=== PATIENT | female | born 1985 | race Caucasian/White ===

== ENCOUNTER 2019-08-10 08:00 | Emergency (ER) | payer OTHER ==
[~2019-08-10] VITALS: Ht 170.2 cm; Wt 78.0 kg
[2019-08-10] MEDS ORDERED: DIPH,PERTUSS(ACELL),TET VAC/PF 0.5 ML IM-VACC ONE ×2 (08:24→08:30)
--- NOTE | 2019-08-10 08:30 | NUR ---
Pt transported on gurney to [facility]. Medication per EMAR provided. Labs obtained at bedside.
[2019-08-10 08:39] LABS: BASOPHILS # (AUTO) 0.03 x10^3/uL (0-0.1); BASOPHILS % (AUTO) 0 % (0-1); EOSINOPHILS # (AUTO) 0.05 x10^3/uL (0-0.4); EOSINOPHILS % (AUTO) 1 % (1-7); LYMPHOCYTES # (AUTO) 1.04 x10^3/uL (1-3.4); LYMPHOCYTES % (AUTO) 12 % (22-44); MD NO; MEAN CORPUSCULAR HEMOGLOBIN 31.4 pg (27.0-34.8); MEAN CORPUSCULAR HGB CONC 33.5 g/dL (32.4-35.8); MEAN CORPUSCULAR VOLUME 93.9 fL (80-100); MEAN PLATELET VOLUME 9.4 fL (7.4-10.4); MONOCYTES # (AUTO) 0.67 x10^3/uL (0.2-0.8); MONOCYTES % (AUTO) 8 % (2-9); NEUTROPHILS # (AUTO) 7.12 x10^3/uL (1.8-6.8); NEUTROPHILS % (AUTO) 80 % (42-75); PLATELET COUNT 218 x10^3/uL (130-400); RED BLOOD COUNT 4.71 x10^6/uL (3.82-5.3); RED CELL DISTRIBUTION WIDTH 12.7 % (9.6-15.2)
[2019-08-10 08:48] VITALS: BP 106/66
[2019-08-10 08:51] LABS: ALBUMIN 4.1 g/dL (3.4-5.0); ANION GAP 4 mmol/L (5-15); CALCIUM 8.8 mg/dL (8.5-10.1); CHLORIDE 107 mmol/L (98-107)
[2019-08-10 08:56] LABS: CREATININE 1.07 mg/dL (0.55-1.02)
--- NOTE | 2019-08-10 08:57 | NUR ---
LATE NOTE ENTRY DUE TO PT CARE. Pt presents to ED with c/o right periorbital bruising and tenderness and upper lip swelling s/p syncopal episode after drinking beer on Saturday. Pt states LOC for 30 minutes at time of syncopal episode. NADN. No other needs expressed. PT resting on gurney connected to NIBP cuff, continous pulse ox, and cardiac catheterization technologist. Call light within reach and bedrails up x 2. Pt has friends/family at bedside. No active bleeding observed at this time.
== END 2019-08-10 09:28 | disposition home or self-care (01) ==
LOC: ED 09:22
DX: S02.2XXA Fracture of nasal bones, initial encounter for closed fracture (principal); S01.511A Laceration without foreign body of lip, initial encounter; R55 Syncope and collapse; W18.30XA Fall on same level, unspecified, initial encounter; Y93.89 Activity, other specified; Y92.009 Unspecified place in unspecified non-institutional (private) residence as the place of occurrence of the external cause; Y99.8 Other external cause status
CPT/HCPCS: 36415; 70486; 80048; 82040; 84703; 85025; 90471; 90715; 93005